=== PATIENT | female | born 1950 | race Caucasian/White ===

== ENCOUNTER → 2018-11-05 09:36 | Outpatient (CLI) | payer BC, SELFPAY ==
[2018-07-08 13:04] VITALS: BMI 29.4
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
== END ==
PROVIDERS: Family Provider Physician Assistant Medical; PCP Physician Assistant Medical; Referring Provider Internal Medicine Critical Care Medicine; Visit Provider Internal Medicine Critical Care Medicine
DX: Z77.098 Contact with and (suspected) exposure to other hazardous, chiefly nonmedicinal, chemicals (principal)
CPT/HCPCS: 94060; 94726; 94729

== ENCOUNTER → 2019-04-10 06:21 | Outpatient (CLI) | payer MEDICARE, SELFPAY ==
[2019-03-26 13:52] VITALS: BMI 29.1
--- NOTE | 2019-04-10 06:22 | ECHOCS_ITS ---
Reason For Study: CASTELLANOS, CHEST PAIN Procedure This was a 2D Doppler, Color Flow transthoracic echocardiogram. Contrast injection was performed. Exam performed in department. Left Ventricle Normal LV size. The estimated ejection fraction is 55 %. No evidence for diastolic dysfunction. No regional wall motion abnormalities noted. Right Ventricle Normal RV size. Normal systolic function. Atria Normal left atrium. Normal right atrium. No doppler evidence for ASD. Mitral Valve There is no stenosis. No mitral valve insufficiency. Tricuspid Valve There is no tricuspid stenosis. Mild tricuspid valve insufficiency. Unable to estimate RV systolic pressure due to insufficient tricuspid regurgitant envelope. Aortic Valve Trisinus/trileaflet aortic valve. There is no aortic stenosis. No aortic valve insufficiency. Pulmonic Valve There is no pulmonic valvular stenosis. No pulmonic valve insufficiency. Great Vessels Normal aortic root. Pericardium/Pleural No pericardial effusion. Medication Diluted definity 2.0ml given slow IV push to enhance endocardial definition. MMode/2D Measurements & Calculations LVIDd: 4.5 cm IVSd: 1.1 cm Ao root diam: 2.9 cm LVIDs: 3.0 cm LVPWd: 1.1 cm FS: 32.7 % LAV(MOD-bp): 46.9 ml LA A4 area: 18.9 cm2 LA dimension(2D): 3.9 cm LAV(MOD-bp) Indexed: 25.1 ml/m2 LAV(MOD-sp2): 43.0 ml LAV(MOD-sp4): 50.8 ml RA A4 area: 16.8 cm2 Time Measurements MV dec time: 0.18 sec Doppler Measurements & Calculations MV E max johnny: 98.6 cm/sec Lat Peak E' Johnny: 7.9 cm/sec Med Peak E' Johnny: 7.7 cm/sec MV A max johnny: 84.9 cm/sec E/E' lat: 12.5 E/E' med: 12.7 MV E/A: 1.2 Ao V2 max: 146.8 cm/sec LV V1 max: 98.4 cm/sec PA V2 max: 93.9 cm/sec Ao max P.6 mmHg LV V1 max P.9 mmHg Ao V2 mean: 94.6 cm/sec LV V1 mean P.0 mmHg Ao mean P.1 mmHg LV V1 mean: 67.2 cm/sec Ao V2 VTI: 32.7 cm LV V1 VTI: 24.4 cm TR max johnny: 289.6 cm/sec TR max P.6 mmHg Interpretation Summary Diluted definity 2.0ml given slow IV push to enhance endocardial definition. The estimated ejection fraction is 55 %. No evidence for diastolic dysfunction. Mild tricuspid valve insufficiency. The study was technically difficult. Ordering Physician: Ross Villafuerte Referring Physician: Amirah Verma Performed By: Farheen Avina RDCS, RVT
--- NOTE | 2019-04-10 14:54 | STRESSREP_ITS ---
Stress Test Report Date: 04/10/2019 Procedure: Pharmacologic stress nuclear imaging study Indications: Chest pain Consent: Per the patient Procedure: The patient underwent pharmacologic (Regadenoson) evaluation with a peak heart rate of 82 beats per minute (54 %predicted maximal heart rate) and a peak blood pressure of 122/62 mmHg. The baseline ECG demonstrated normal sinus rhythm. EKG during lexiscan infusion revealed no significant ischemic changes. EKG post infusion revealed no significant ischemic changes [There were no cardiac dysrhythmias pretest, during pharmacologic infusion, or recovery]. [Patient had 2-3/10 chest pressure at rest which went up to 6/10 with Lexiscan infusion]. The examination was discontinued secondary to completion of protocol. Impression: 1. Lexiscan stress test test is negative for Lexiscan infusion induced EKG changes of ischemia. 2. Lexiscan stress test test is positive for Lexiscan infusion induced chest pain which is likely a nonspecific response 3. Results of the nuclear portion of the test is as below Myocardial perfusion imaging study: Technique: The patient was injected with 11.7 millicuries of technetium 99m Cardiolite and subsequently rest SPECT Cardiolite nuclear imaging was obtained in the horizontal long, vertical long, and short axis views. The patient underwent p harmacologic (Regadenoson) evaluation. Please see above for details. The patient was injected with 36 millicuries of technetium 99m Cardiolite and subsequently stress SPECT Cardiolite nuclear imaging was obtained in the horizontal long, vertical long, and short axis views. A gated Cardiolite study at peak stress was obtained. Interpretation: Rest and stress SPECT Cardiolite nuclear imaging status post realignment, normalization, and attenuation correction demonstrate overall normal myocardial radioisotope uptake. Gated images reveal no regional wall motion abnormalities. The reported LVEF is greater than 70 %. Impression: 1. There is no evidence of significant ischemia or infarction. 2. Estimated ejection fraction is greater than 70%. This note was generated with Twillionation software. It may contain incorrect words, spelling, and punctuation that were not noted in checking the note before signing.
== END ==
PROVIDERS: PCP Physician Assistant Medical; Referring Provider Specialist; Visit Provider Specialist
DX: I25.10 Atherosclerotic heart disease of native coronary artery without angina pectoris (principal); I25.84 Coronary atherosclerosis due to calcified coronary lesion; I25.2 Old myocardial infarction; E78.5 Hyperlipidemia, unspecified; R07.9 Chest pain, unspecified
CPT/HCPCS: 78452; 93017; 93306; A9500; Q9957; A4216; C8929; J2785

== ENCOUNTER → 2019-04-24 10:48 | Outpatient (CLI) | payer MEDICARE, SELFPAY ==
[2019-04-23 11:28] VITALS: BMI 29.1
== END ==
PROVIDERS: PCP Physician Assistant Medical; Referring Provider Specialist; Visit Provider Specialist
DX: R00.2 Palpitations (principal)
CPT/HCPCS: 93225; 93226

== ENCOUNTER → 2019-09-15 09:16 | Outpatient (CLI) | payer MEDICARE, SELFPAY ==
[2019-09-10 09:59] VITALS: BMI 30.1
[2019-09-15 10:00] VITALS: PULSE 73; PULSE 75; PULSE 82; PULSE 88; PULSE 90; PULSE 93; PULSE 94; PULSE 97; O2SAT 95; O2SAT 96; O2SAT 97
--- NOTE | 2019-09-15 12:41 | PCM.PSN.6M ---
PSN 6 Minute Walk Test - 6 Minute Walk Test 6 Minute Walk Test: 6 Minute Walk Test PSN:6-Minute Walk Test Start: 09/15/19 10:20 Freq: Status: Active Protocol: RESP.6MINW Document 09/15/19 10:00 (Rec: 09/15/19 10:23 [id number]) 6 Minute Walk Test Date Performed 09/15/19 Time Performed 10:00 Height 5 ft 5 in Weight: 86.183 kg Weight in Pounds 190.[address]: Erlinda Hammond FIO2 (% Oxygen) 21 Assistive device used: None Pre-test Oxygen Delivery Method Room Air Pulse Ox (%) 97 Pulse Rate (60-100 beats/min) 73 Dyspnea Reena Scale (0-10) 0 Exertion Reena Scale (6-20) 6 1st minute Oxygen Delivery Method Room Air Pulse Ox (%) 96 Pulse Rate (60-100 beats/min) 82 2nd minute Oxygen Delivery Method Room Air Pulse Ox (%) 95 Pulse Rate (60-100 beats/min) 90 3rd minute Oxygen Delivery Method Room Air Pulse Ox (%) 95 Pulse Rate (60-100 beats/min) 88 4th minute Oxygen Delivery Method Room Air Pulse Ox (%) 95 Pulse Rate (60-100 beats/min) 94 5th minute Oxygen Delivery Method Room Air Pulse Ox (%) 96 Pulse Rate (60-100 beats/min) 97 6th minute Oxygen Delivery Method Room Air Pulse Ox (%) 96 Pulse Rate (60-100 beats/min) 93 Post-test Oxygen Delivery Method Room Air Pulse Ox (%) 95 Pulse Rate (60-100 beats/min) 75 Dyspnea Reena Scale (0-10) 2 Exertion Reena Scale (6-20) 11 Full Laps Walked 14 Partial Lap, Number of Tiles Walked 0 Total Distance Walked (ft) 826 - Interpretation Interpretation: The patient was able to travel 826 feet over the course of 6 minutes on room air with no assistive devices or breaks. The patient did not experience any significant desaturation or tachycardia. These findings are consistent with a musculoskeletal limitation exercise tolerance. - Recommendations Recommendations: No supplemental oxygen is indicated at this time.
== END ==
PROVIDERS: PCP Physician Assistant Medical; Referring Provider Nurse Practitioner Acute Care; Visit Provider Nurse Practitioner Acute Care
DX: R06.09 Other forms of dyspnea (principal)
CPT/HCPCS: 94618

== ENCOUNTER → 2020-08-25 12:26 | Outpatient (CLI) | payer MEDICARE, SELFPAY ==
[2020-08-25 10:59] VITALS: BMI 29.4
[2020-08-25 13:31] LABS: Absolute Lymphocyte Count 2.18 X10^3/uL (0.83-4.51); Absolute Neutrophil Count 4.2 X10^3/uL (2.0-7.7); Basophil# 0.01 X10^3/uL; Basophil% 0.1 % (0-1); Eosinophil# 0.07 X10^3/uL; Hematocrit 43.8 % (37-47); Lymphocyte # 2.18 X10^3/ul (0.83-4.51); Lymphocyte % 31.4 % (19-41); Mean Corpuscular Hgb 28.6 pg (27.0-32.0); Mean Corpuscular Volume 89.6 fL (81-99); Mean Platelet Vol. 10.8 fl (6.2-12.0); Monocyte# 0.46 X10^3/uL; Monocyte% 6.6 % (0-10); NRBC Flagged by Analyzer 0 % (0-5); Neutrophil % 60.5 % (47-70); Platelet Count 248 K/mm3 (150-450); RBC Distribution Width CV 12.4 % (11.6-14.6); RBC Distribution Width SD 40.8 fl (35.1-43.9); Red Blood Count 4.89 M/mm3 (4.2-5.4)
[2020-08-25 13:44] LABS: Prothrombin Time (Protime)PT. 12.3 SECONDS (11.7-14.9)
[2020-08-25 13:45] LABS: Partial Thromboplast Time 26.6 Seconds (24.1-36.2)
[2020-08-25 14:12] LABS: AST(SGOT) 21 U/L (15-37); Alanine Aminotransfer ALT/SGPT 34 U/L (13-56); Albumin, Serum 3.7 g/dL (3.2-5.0); Alkaline Phosphatase 108 U/L (45-117); Anion Gap 3 (5-15); BUN 17 mg/dL (7-18); BUN/Creat Ratio 23.4 RATIO (10-20); Bilirubin, Direct 0.11 mg/dL (0.00-0.30); Calcium,Total 9.6 mg/dL (8.5-10.1); Chloride 104 mmol/L (98-107); Cholesterol 276 mg/dL (200); Creatinine, Serum 0.73 mg/dL (0.55-1.02); EST Glomerular Filtration Rate 84 mL/min (>60); Est Glom Filt Rate - Afr Amer 101 mL/min (>60); Globulin 3.9 g/dL (2.2-4.2); Glucose 89 mg/dL (74-106); High Density Lipoprotein 40 mg/dL; Potassium 3.4 mmol/L (3.5-5.1); Protein, Total 7.6 g/dL (6.4-8.2); Sodium Level 140 mmol/L (136-145); Triglycerides 451 mg/dL
== END ==
PROVIDERS: PCP Physician Assistant Medical; Referring Provider Physician Assistant Medical; Visit Provider Physician Assistant Medical
DX: K57.30 Diverticulosis of large intestine without perforation or abscess without bleeding (principal); I25.10 Atherosclerotic heart disease of native coronary artery without angina pectoris; I25.84 Coronary atherosclerosis due to calcified coronary lesion; I10 Essential (primary) hypertension; E78.5 Hyperlipidemia, unspecified; R07.89 Other chest pain
CPT/HCPCS: 36415; 80048; 80061; 80076; 85025; 85610; 85730

== ENCOUNTER 2020-09-14 07:28 | Day surgery (SDC) | payer MEDICARE, SELFPAY ==
[2020-08-25 10:59] VITALS: BMI 29.4
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
[2020-09-13 10:38] VITALS: BMI 29.4
--- NOTE | 2020-09-14 11:40 | CL.D_ITS ---
Patient Name: CORETTA PAULSON Study Date: 09/14/2020 Performing: Indio Holcomb MD Ht: 64.96 inches 165 cm : 1950 Wt: 176.37 lbs 80 kg Age: 69 Gender: female BSA: 1.87 PROCEDURE(S) PERFORMED [id number]/COR/LV CLINICAL PROFILE AND INDICATIONS Indications: Suspected CAD, Other: Chest CT Scan: + LAD calcification Heart Failure: None Stress/Imaging Date: 04/10/2019Stress Test with SPECT MPI: Negative Angina Classification Anginal Classification w/in 2 Weeks: CCS III CAD Presentations: Other: Chest Pain CONCLUSIONS Elevated Left Ventricular End Diastolic Pressure Normal LV size, wall motion,and systolic function LVEF: by LV gram 65 % RECOMMENDATIONS Risk factor modification Medical therapy DESCRIPTION OF PROCEDURE The patient arrived to the procedure lab. The risks and benefits of the procedure as well as a full d escription of our services here and current unavailability of surgical backup were fully explained to the patient and/or their significant other prior to the catheterization. The Timeout was completed, verifying the correct patient and procedure. The patient's procedural site was prepped and draped in the usual fashion. Local anesthetic was given subcutaneously to right groin region with Lidocaine 2%. Using a modified Seldinger technique, arterial access was obtained via the right femoral artery, a 4 Fr sheath was inserted Left Coronary Artery selective angiography was performed in multiple views us ing a 4 Fr. JL5 catheter. Right Coronary Artery selective angiography was then performed in multiple views using a 4 Fr. 3DRC catheter. Left Ventriculography was performed in BRAR projection using a 4 Fr . Pigtail catheter. LV to AO pullback pressures were then recorded.The arterial sheath was pulled and manual compression applied until hemostasis is achieved. CORONARY ANGIOGRAPHY DOMINANCE: Co- Dominant LEFT HEART ASSESSMENT Left Ventricular Ejection Fraction: by LV Gram 65 % Normal LV wall motion Elevated Left Ventricular End Diastolic Pressure LVEDP: 18 mmHg LEFT MAIN: Mild calcification LEFT ANTERIOR DESCENDING ARTERY: PROX LAD: Mild calcification, smooth: eccentric: 25 % Stenosis MID LAD: smooth: 10 - 25 % Stenosis CIRCUMFLEX ARTERY: Angiographically normal RIGHT CORONARY ARTERY: Angiographically normal AORTIC ROOT: Angiographically normal COMPLICATIONS No Complications PROCEDURE MEDICATIONS Versed 1 mg IV Versed 1 mg IV Oxygen: 2 L/min via nasal cannula SUMMARY OF HEMODYNAMIC DATA Time AIR REST ECG 08:00:57 AO 155/78 (111) SA 09:47:22 LV 166/-4, 23 09:55:10 LV 166/-5, 18 09:55:20 LV 169/-2, 23 09:56:17 LVp 176/62, 72 09:56:27 AOp 169/77 (117) 09:56:32 Signed By Indio Holcomb MD On 09/14/2020 11:39:12 Indio Holcomb MD
== END 2020-09-14 14:35 | disposition home or self-care (01) ==
LOC: CLSP 07:30
PROVIDERS: PCP Physician Assistant Medical; Referring Provider Internal Medicine Cardiovascular Disease; Visit Provider Internal Medicine Cardiovascular Disease
DX: I25.10 Atherosclerotic heart disease of native coronary artery without angina pectoris (principal); I10 Essential (primary) hypertension; I25.2 Old myocardial infarction; E78.5 Hyperlipidemia, unspecified; G47.33 Obstructive sleep apnea (adult) (pediatric); Z79.02 Long term (current) use of antithrombotics/antiplatelets; Z79.82 Long term (current) use of aspirin; Z79.899 Other long term (current) drug therapy; Z86.73 Personal history of transient ischemic attack (TIA), and cerebral infarction without residual deficits
CPT/HCPCS: 93458; 99152; 99153; J7040; Q9967; C1769; C1894

== ENCOUNTER → 2020-11-25 09:23 | Outpatient (CLI) | payer MEDICARE, SELFPAY ==
[2020-11-25 10:23] LABS: Absolute Lymphocyte Count 2.09 X10^3/uL (0.83-4.51); Absolute Neutrophil Count 3.3 X10^3/uL (2.0-7.7); Basophil# 0.02 X10^3/uL; Basophil% 0.3 % (0-1); Eosinophil# 0.09 X10^3/uL; Eosinophils% 1.5 % (0-5); Hemoglobin 14.1 g/dL (12.0-15.0); Lymphocyte # 2.09 X10^3/ul (0.83-4.51); Lymphocyte % 35.2 % (19-41); Mean Corpuscular Volume 90.3 fL (81-99); Mean Platelet Vol. 10.9 fl (6.2-12.0); Monocyte# 0.41 X10^3/uL; Monocyte% 6.9 % (0-10); NRBC Flagged by Analyzer 0 % (0-5); Neutrophil # 3.31 X10^3/uL (2.7-7.7); Neutrophil % 55.8 % (47-70); Platelet Count 215 K/mm3 (150-450); RBC Distribution Width CV 13.1 % (11.6-14.6); RBC Distribution Width SD 43.3 fl (35.1-43.9); Red Blood Count 4.87 M/mm3 (4.2-5.4); White Blood Count 5.9 K/mm3 (4.4-11.0)
[2020-11-25 10:47] LABS: RBC /Synovial Fluid 0.179 10^6/uL (0); Synovial Fld Mononuclear WBC % 52.5 %; Synovial Fld Polynuclear WBC # 0.132 10^3/uL; Synovial Fld Polynuclear WBC % 47.5 %
[2020-11-25 10:47] LABS: CRP 6.68 mg/L (0.0-3.0)
[2020-11-25 10:48] LABS: Erythrocyte Sedimentation Rate 9 mm/hr (0-30)
[2020-11-25 11:00] LABS: AUTO B FLUID DILUENT BKGD CT WBC <0.1 RBC <0.01 (W<.1,R<.01); Appearance /Synovial Fluid Cloudy (CLEAR); Color / Synovial Fluid Red (Pale Yellow); Source / Synovial Fluid RIGHT KNEE; Synovial Fld Mononuclear WBC # 0.146 10^3/ul
[2020-11-25 11:34] LABS: Lymph 14 %; Monocyte /Synovial Fluid 4 %; Neutrophil 82 % (0-25)
[2020-11-25 11:35] LABS: Body Fluid QC Type(s) BF1Q
[2020-11-26 13:28] LABS: Pathologist Comment Reviewed
== END ==
PROVIDERS: PCP Internal Medicine; Referring Provider Specialist; Visit Provider Specialist
DX: Z96.651 Presence of right artificial knee joint (principal)
CPT/HCPCS: 36415; 85025; 85652; 86140; 87015; 87070; 87075; 87101; 87116; 87205; 87206; 89050; 89051

== ENCOUNTER → 2021-02-08 | Outpatient (CLI) | payer MEDICARE, SELFPAY ==
--- NOTE | 2021-02-01 16:33 | PCM.HP.BLA ---
History and Physical History and Physical [facility] Patient Name: Chloe Troy : 1950 From: CHLOÉ BURGESS PA-C DATE OF SURGERY: 02/16/2021 SCHEDULED PROCEDURE: right knee open lysis of adhesions, patellar resurfacing, polyethylene exchange HISTORY OF PRESENT ILLNESS: Preoperative history and physical exam was performed on January 31, 2021. This is a 70-year-old female who has had previous right total knee arthroplasty by Dr. Bhandari in 2019. Patient has had ongoing pain since the surgery. There was no postoperative complications or infections per patient. Patient's family member did report that her postoperative rehabilitation was very tough early. She continued to have difficult after the surgery and had significant anxiety throughout her recovery due to associated pain. There was no trauma or injury. She gets pain getting up from a seated position, walking, and going up and down stairs. Her pain has been constant and sharp. She has difficult time with activities of daily living including bathing. She has tripped/stumbled due to the pain. She feels unsafe walking any amount of distance to the knee pain. Patient has tried rest, ice, heat, elevation with minimal relief. She has tried physical therapy and compression with no relief. She has tried oral medications without relief in symptoms. She has been on previous oral steroids. Patient has had aspiration of the right knee which did rule out infection. She has used a cane. Patient has continued to have stiffness in her knee. After discussion with Dr. Jose Luis Rice, the patient does wish to proceed with right knee open lysis of adhesions, patellar resurfacing and polyethylene exchange. We are obtaining surgical clearance from patient's primary care physician Dr. South and her construction economist at [facility]. Patient has medical history pertinent for hypertension, coronary artery disease, complex regional pain syndrome with the right upper extremity, diverticular disease, history of myocardial infarction, history of stroke, hyperlipidemia, prediabetes, sleep apnea, overactive bladder, M?ni?re's disease, leg edema. Currently denies any chest pain, shortness of breath, fevers chills or recent infections. We will also get clearance with cardiology for perioperative management of patient's Plavix. REVIEW OF SYSTEMS: ROS: Const: Denies change in appetite, fever and weight change. CV: Denies chest pain, heart murmur and irregular heartbeat. Resp: Denies cough, pneumonia, shortness of breath, tuberculosis and wheezing. GI: Denies constipation, diarrhea, heartburn, nausea, rectal itching, bloody stools and vomiting. : Denies incontinence. Musculo: Reports leg swelling, pain, trouble walking and weakness. Skin: Denies Raynaud's, history of shingles and tattoo. Neuro: Reports ambulatory dysfunction, difficulty with balance and numbness/tingling but denies dizziness and tremor. Psych: Reports insomnia, but denies anxiety and stress. Chace/Lymph: Denies anemia, bleeding/bruising tendency and past transfusion. Reviewed and updated. PAST MEDICAL HISTORY: Advance Care Plan: PMH: Medical Problems: Coronary Artery Disease (CAD), Heart Attack, Hypercholesterolemia, Sleep Apnea, Stroke, Covid-19 Vaccinated, RSD RT Arm, Meniere Disease, hyperlipoidemia Accidents: None Surgical Hx: Hysterectomy - (1971) Tonsillectomy - (1955) RT TKR - (2019) LT Ankle Reconstruction - (1969) Prolapse Uterus - (2015) Anesthesia Complications: None Assistive Devices: Cane, Cpap, Glasses Reviewed and updated. SOCIAL HISTORY: SH: Marital: .Occupation: Retired.Work Status: Retired.Hand Dominance: Right-handed. Personal Habits: Cigarette Use: Never Smoked Cigarettes.Smokeless Tobacco: Never Used Smokeless Tobacco.E-Cigarette Use: Never used.Alcohol: Occasionally.Drug Use: Denies Use.Enjoy Exercising: Exercises 1-3 X/Week. Reviewed, no changes. VITALS: Ht: 63.9 Wt: 176lb Wt k.834 BMI: 30.3 BP: 112/76 Pulse: 78 Resp: 14 T: 97.2 T: 36.2C Pain Level: 5 ALLERGIES: Rocephin Statin Drugs Oxybutynin Iodinated Contrast MEDICATIONS: Gabapentin 300 mg 2po bid, & 3 qhs, Hydrochlorothiazide 25 mg 1po qday, Losartan Potassium 50 mg 1po qday, Aspirin 81 81 mg 1po qday, Calcium 600 + D 600-200 MG-Unit 1po bid, Flonase Allergy Relief 50 mcg/Act one spray as needed, Magnesium 400 mg 1po qday, B Complete 1po qday, Fish Oil 1000 mg 1po qday, Coq10 100 mg 1 by mouth every day, Ventolin HFA 108 (90 Base) mcg/Act as directed, Pantoprazole Sodium 20 mg 1 by mouth every day, Potassium Chloride Sabrina ER 20 Meq 1 by mouth every day, Xopenex HFA 45 mcg/Act 1-2 puffs q 4-6 hrs, prn, Ezetimibe 10 mg 1 by mouth every day, Turmeric Curcumin 5-1000 mg 1po qday, Vitamin B 12 500 mcg 2 daily, Furosemide 20 mg 1 by mouth every day, Meclizine HCL 25 mg, Plavix 75 mg, Repatha 140 mg/ml PRE-OP EXAM: General appearance:NORMAL Other: Eyes: Conjunctivae and lids: NORMAL Pupils: ERR Ears, Nose, Mouth, and Throat: NORMAL Other: Inspection of lips, teeth and gums: NORMAL Other: Neck: Examination of neck: no masses noted. Respiratory: Assessment of respiratory effort: NORMAL Other: Auscultation of lungs: clear to auscultation no wheezes, rhonchi or rales. Cardiovascular: Auscultation of heart: regular rate and rhythm, no murmurs, gallops or rubs. PHYSICAL EXAMINATION: Patient does walk with an antalgic gait. Right knee incision is well-healed without erythema or signs of infection. She does have moderate effusion. She has exquisite tenderness to palpation diffusely throughout the knee. There is warmth to touch. She has increased pain with range of motion. Range of motion right knee: 26 to 81 flexion. IMAGING STUDIES: Previous x-rays of the right knee Reveal stable implants with no evidence of loosening or lucencies. Previous lab work was not consistent with any infectious etiology. IMPRESSION: 1. Painful right total knee arthroplasty with decreased range of motion 2. Hypertension 3. Coronary artery disease 4. Complex regional pain syndrome right upper extremity 5. Diverticular disease 6. History of myocardial infarction 7. History of stroke 8. Hyperlipidemia 9. Prediabetes 10. Sleep apnea 11. Overactive bladder 12. M?ni?re's disease 13. Leg edema PLAN: Dr. Jose Luis Rice did discuss and review with the patient all treatment options including surgical versus nonsurgical options. Patient does wish to proceed with the above-stated procedure. Potential risks, benefits, and complications of the procedure were discussed in detail including but not limited to , infection, nerve and blood vessel damage, persistent pain, numbness, tingling, paresthesias, blood clot, pulmonary embolism, and requirement for possible further surgery. The patient expressed full understanding and has no further questions for the doctor. Patient does agree to proceed with the above-stated procedure and has signed the surgery consent form. We discussed the current risks associated with COVID 19. This does include the risk of exposure while in the hospital. Patient was reassured local hospitals have low infection rates and are taking all necessary precautions to avoid exposure to patients. In addition, we discussed strategies that can be used to help limit exposure including those that limit the patient's time in the hospital. Also using strategies to limit the patient's need for continued inpatient services after being discharged from the hospital. Patient was notified that we will need to comply with any screening or testing the hospital wishes to perform or that surgery may be delayed for any positive results. This dictation was created using voice recognition software. Phonetic and/or grammatical errors may exist. ___ I have re-examined the patient. There are no clinical changes since date of exam. ___ See progress notes for changes. ___ Dictated on admission Date: Time: Signature:
[2021-02-08 11:02] LABS: Magnesium 2.4 mg/dL (1.6-2.6)
[2021-02-08 13:31] LABS: Probe Check PASS
== END | disposition home or self-care (01) ==
LOC: PAT 03-14 16:56
PROVIDERS: Anesthesiology; PCP Internal Medicine; Visit Provider Specialist
DX: Z01.818 Encounter for other preprocedural examination (principal); U07.1 COVID-19
CPT/HCPCS: 36415; 83735; 87081; 87426; 87635; C9803; U0005; U0003